=== PATIENT | male | born 1970 | race Caucasian/White ===

== ENCOUNTER 2019-04-06 09:29 | Day surgery (SDC) | payer OTHER ==
[~2019-04-06] VITALS: Ht 165.1 cm; Wt 74.4 kg
[~2019-04-06 09:29] MED LIST: [UNRECOGNIZED DRUG - REMARK]; atorvastatin; cozaar; metformin; ranitidine
[2019-04-06 10:52] VITALS: Ht 165.1 cm; Wt 74.4 kg
[2019-04-06 11:11] VITALS: BP 131/78; PULSE 65; RESP 12
[2019-04-06] MEDS ORDERED: FENTAnyl 50 MCG/ML VIAL ONE (12:07)
[2019-04-06] MEDS ORDERED: MIDAZOLAM 1 MG/ML 2 ML INJ ONE ×2 (12:08)
[2019-04-06 12:50] VITALS: BP 114/61; RESP 20
== END 2019-04-06 12:21 | disposition home or self-care (01) ==
LOC: GIL 09:29
PROVIDERS: ATTEND Internal Medicine Gastroenterology
DX: R19.5 Other fecal abnormalities (principal); K64.8 Other hemorrhoids; E11.9 Type 2 diabetes mellitus without complications; I10 Essential (primary) hypertension
CPT/HCPCS: 45378; 82962; J2250; J3010; Z7610